=== PATIENT | female | born 1950 | race Caucasian/White ===

== ENCOUNTER → 2020-12-04 | Outpatient (CLI) | payer OTHER ==
[~2020-12-04] MED LIST: ASPIRIN EC81 MG PO; BIOTIN PO; CALCIUM ANTACI300 MG PO; ELIQUIS 2.5 MG2.5 MG PO; FAMOTIDINE20 MG PO; HYDROCODON-ACE1 EAC2 PO; IBANDRONATE SO150 MG PO; LEVOTHYROXINE50 MCG PO; MAGNESIUM OXID400 M1 PO; SIMVASTATIN20 MG PO; TRIAMTERENE-HC1 EAC1 PO; TYLENOL EXTRA500 MG PO; VITAMIN D350 MCG PO
[2020-12-04 09:49] LABS: HEMOGLOBIN 15.3 gm/dl (12.3-15.3); RED BLOOD COUNT 4.96 M/UL (4.00-5.10)
[2020-12-04 10:35] LABS: BUN/CREATININE RATIO 19 (0-10)
== END ==
LOC: OPSV2 08:56 → EDSTATUS 09:00 → OPSV2 09:00
PROVIDERS: Orthopaedic Surgery
DX: Z01.818 Encounter for other preprocedural examination (principal); M17.12 Unilateral primary osteoarthritis, left knee; R94.31 Abnormal electrocardiogram [ECG] [EKG]
CPT/HCPCS: 36415; 71046; 80048; 81001; 85025; 87081; 93005

== ENCOUNTER → 2020-12-09 | Outpatient (CLI) | payer OTHER ==
[2020-12-09 13:35] LABS: BUN/CREATININE RATIO 18 (0-10)
== END ==
LOC: LAB 12:11
PROVIDERS: Orthopaedic Surgery
DX: Z01.812 Encounter for preprocedural laboratory examination (principal); M17.12 Unilateral primary osteoarthritis, left knee; I10 Essential (primary) hypertension; E07.9 Disorder of thyroid, unspecified
CPT/HCPCS: 36415; 80048; 86850; 86900; 86901

== ENCOUNTER 2020-12-10 06:52 | Day surgery (SDC) | payer OTHER ==
[~2020-12-10] VITALS: Ht 162.6 cm; Wt 79.4 kg
[2020-12-10] MEDS ORDERED: FAMOTIDINE20 MG PO (07:53)
[2020-12-10] MEDS ORDERED: IBANDRONATE SO150 MG PO (07:53)
[2020-12-10] MEDS ORDERED: LEVOTHYROXINE50 MCG PO (07:54)
[2020-12-10] MEDS ORDERED: SIMVASTATIN20 MG PO (07:55)
[2020-12-10] MEDS ORDERED: TRIAMTERENE-HC1 EAC1 PO ×2 (07:56→08:06)
[2020-12-10] MEDS ORDERED: ASPIRIN EC81 MG PO (07:57)
[2020-12-10] MEDS ORDERED: MAGNESIUM OXID400 M1 PO (07:58)
[2020-12-10] MEDS ORDERED: VITAMIN D350 MCG PO (07:58)
[2020-12-10] MEDS ORDERED: CALCIUM ANTACI300 MG PO (07:59)
[2020-12-10] MEDS ORDERED: BIOTIN PO (08:01)
[2020-12-10] MEDS ORDERED: TYLENOL EXTRA500 MG PO (08:02)
[2020-12-10] MEDS ORDERED: HYDROCODON-ACE1 EAC2 PO (11:14)
[2020-12-11] MEDS ORDERED: ELIQUIS 2.5 MG2.5 MG PO (09:59)
--- NOTE | 2020-12-11 11:32 | NUR ---
PT STATED SHE DIDNT NEED ANYTHING AT HOME AND THAT SHE IS ALREADY SET UP WITH [facility] IN [place] FOR PT. SHE STATED THAT THEY KNOW SHE WILL BE COMING THERE AND SHE WILL CALL THEM FOR HER APPOINTMENT WHEN SHE GETS HOME.
== END 2020-12-11 11:19 | disposition home or self-care (01) ==
LOC: OR 06:52 → ZOBSOF 09:00 → EDSTATUS 09:00 → M/S 14:51 → OR 12-11 11:19
PROVIDERS: Orthopaedic Surgery
PROC: 3E0T3BZ Introduction of Anesthetic Agent into Peripheral Nerves and Plexi, Percutaneous Approach (ICD-10-PCS; 2020-12-10)
PROC: 3E0T3BZ Introduction of Anesthetic Agent into Peripheral Nerves and Plexi, Percutaneous Approach (ICD-10-PCS; 2020-12-10)
PROC: 0SRD0M9 Replacement of Left Knee Joint with Lateral Unicondylar Synthetic Substitute, Cemented, Open Approach (ICD-10-PCS; principal; 2020-12-10 09:00)
DX: M17.12 Unilateral primary osteoarthritis, left knee (principal); G89.29 Other chronic pain; G89.18 Other acute postprocedural pain; M25.511 Pain in right shoulder; I10 Essential (primary) hypertension; E78.5 Hyperlipidemia, unspecified; K21.9 Gastro-esophageal reflux disease without esophagitis; E89.0 Postprocedural hypothyroidism; R32 Unspecified urinary incontinence; Z79.82 Long term (current) use of aspirin; Z79.899 Other long term (current) drug therapy; Z20.822 Contact with and (suspected) exposure to COVID-19
CPT/HCPCS: 0; 73560; 97116-GP-CQ; 97161; 97166; 97535; C1713; C1776; J0171; J0690; J1100; J1170; J2001; J2405; J2704; J2795; J3010; J3370; J7120